=== PATIENT | male | born 1980 ===

== ENCOUNTER 2021-07-21 23:56 | Emergency (ER) | payer MEDICAID, MEDICARE ==
[2021-07-22] MEDS ORDERED: Ketorolac 30 MG/ML SDV IM ONE (00:17)
== END 2021-07-22 01:10 | disposition home or self-care (01) ==
LOC: MW.ED 23:56
DX: B34.9 Viral infection, unspecified (principal); Z20.822 Contact with and (suspected) exposure to COVID-19
CPT/HCPCS: 96372; 99283; J1885; U0002